=== PATIENT | male | born 1970 | race Caucasian/White ===

== ENCOUNTER → 2017-10-04 | Outpatient (REF) ==
--- NOTE | 2017-10-05 06:49 | REP ---
LUMBOSACRAL SPINE: CLINICAL: Pain and disability. TECHNIQUE: AP, lateral, coned down views of the lumbosacral spine. FINDINGS: Alignment and lordosis maintained and there is no evidence for acute fracture/compression injury or subluxation. Moderate degenerative disc osteophyte complex at the L3-4 level is appreciated including end plate sclerosis, disc space narrowing and marginal osteophyte. Remainder of examination appears normal for age. IMPRESSION: Focal moderate degenerative disc osteophyte complex at the L3-4 level. Signed by Wade Basilio MD 10/06/2017 08:54 A
== END ==
LOC: M SMT 13:39
PROVIDERS: ATTEND Internal Medicine
DX: Z02.9 Encounter for administrative examinations, unspecified (principal)

== ENCOUNTER → 2020-12-03 | Outpatient (REF) | payer OTHER ==
[~2020-12-03] MED LIST: ADME100I SC; ASPI81TA21 PO; ASPI81TA86 PO; ATOR80TA59 PO; CLOP75TA2 PO; EZET10TA21 PO; LANTINJ4 SC; LISI10TA22 PO; METF10004 PO; METO200T28 PO; NESI25TA PO; SPIR-10 PO; TORS20TA2 PO
[2020-12-03 13:14] LABS: BASO # 0.1 10^3/uL (0.0-0.2); BASO % 0.8 % (0.0-1.0); EOS # 0.1 10^3/uL (0.0-0.5); EOS % 0.9 % (0.0-3.0); HEMATOCRIT 48.5 % (42.0-52.0); HEMOGLOBIN 15.6 g/dl (13.5-17.5); LYMPH # 1.5 10^3/uL (1.5-5.0); MEAN CORPUSCULAR HEMOGLOBIN 27.6 pg (27.0-33.0); MEAN CORPUSCULAR HGB CONC 32.2 g/dl (32.0-36.5); MEAN CORPUSCULAR VOLUME 85.7 fl (80.0-96.0); MONO # 0.9 10^3/uL (0.0-0.8); MONO % 8.6 % (0.0-5.0); NEUTROPHILS # 7.5 10^3/uL (1.5-8.5); NEUTROPHILS % 74.3 % (36.0-66.0); PLATELET COUNT, AUTOMATED 271 10^3/uL (150-450); RED BLOOD COUNT 5.66 10^6/uL (4.30-6.10); WHITE BLOOD COUNT 10.1 10^3/uL (4.0-10.0)
[2020-12-03 13:25] LABS: FOLATE 10.2 NG/ML
== END ==
LOC: M LAB REF 12:46
PROVIDERS: ATTEND Physician Assistant
DX: E11.40 Type 2 diabetes mellitus with diabetic neuropathy, unspecified (principal)

== ENCOUNTER → 2021-03-23 | Outpatient (CLI) | payer OTHER ==
--- NOTE | 2021-03-23 12:56 | REP ---
INDICATION: PAIN RT LEG, PAIN LT LEG COMPARISON: None. TECHNIQUE: Real time parsons scale and color Doppler evaluation of the bilateral lower extremity arterial vasculature using linear high frequency transducer. FINDINGS: Parsons scale and color images demonstrate mild to moderate amounts of atheromatous plaquing without focal stenosis or occlusion identified. Doppler interrogation demonstrates normal triphasic arterial wave forms and velocities bilaterally. Peak systolic velocities (cm/sec) Common femoral artery: Right 91; Left 88 Profunda femoris: Right 93; Left 60 SFA (proximal): Right 91; Left 65 SFA (mid): Right 108; Left 96 SFA (distal): Right 96; Left 71 Popliteal artery: Right 97; Left 59 SHELBI (prox.): Right 53; Left 110 Tibioperoneal trunk: Right 79; Left 40 BOX OFFICE MANAGER (prox.): Right 61; Left 60 BOX OFFICE MANAGER (distal): Right 88; Left 70 SHELBI (distal): Right 69; Left 62 IMPRESSION: Atheromatous changes without obvious focal occlusion or stenosis. <Electronically signed by Wade Basilio > 03/23/21 [id number]
== END ==
LOC: M RAD 10:41
PROVIDERS: ATTEND Physician Assistant
DX: M79.604 Pain in right leg (principal); M79.605 Pain in left leg

== ENCOUNTER → 2021-04-27 | Outpatient (CLI) | payer OTHER ==
--- NOTE | 2021-04-30 02:28 | ECWPNPC ---
PATIENT NAME: SAMRA REEVES : 1970 GENDER: MALE VISIT DATE: 04/27/2021 DISCHARGE DATE: 04/27/21912 VISIT LOCKED DATE TIME: PHYSICIAN: BABS CHANEL RESOURCE: BABS CHANEL REASON FOR APPOINTMENT 1. INJECTIONS FOR CERVICAL SPONDYLOSIS W/RADICULOPATHY HISTORY OF PRESENT ILLNESS DEPRESSION SCREENING: PHQ-2 (2015 EDITION) LITTLE INTEREST OR PLEASURE IN DOING THINGS?NOT AT ALL FEELING DOWN, DEPRESSED, OR HOPELESS?NOT AT ALL TOTAL SCORE0 GENERAL: HPI 50-YEAR-OLD MALE IN FOR INITIAL PAIN CONSULT REGARDING CERVICAL NECK PAIN. PATIENT WAS REFERRED FOR INJECTIONS FOR CERVICAL SPONDYLOSIS. PATIENT DOES ADMIT TO SOME RADICULAR SYMPTOMS DOWN HIS RIGHT ARM. HE RATES HIS PAIN CURRENTLY AT A 6 OUT OF 10 AND DESCRIBES IT BURNING, CONTINUOUS, AND SHOOTING. HE IS CURRENTLY TAKING LYRICA AND HE ADMITS THAT AT ITS CURRENT DOSAGE IT IS NOT BENEFICIAL.. - - -. FALL RISK SCREENING: SCREENING : NO FALLS REPORTED IN THE LAST YEAR . PAIN SCREENING: PATIENT HAS A COMPLAINT OF ACUTE OR CHRONIC PAIN :YES LOCATION OF PAIN:NECK, RIGHT SHOULDER INTENSITY OF PAIN (SCALE OF 1 TO 10):6 WHAT DOES YOUR PAIN FEEL LIKE:BURNING, CONTINOUS, SHOOTING DURATION:CONTINOUS, CONSTANT, ALL DAY PAIN IS INCREASED BY:ACTIVITIES PAIN IS DECREASED BY:OTHERS HEAT FOR FEW MIN, NOTHING REALLY NURSING NOTE: - - -. PAIN CENTER INTAKE QUESTIONS: DO YOU HAVE A HISTORY OF MRSA? :NO DO YOU TAKE A BLOOD THINNERS? :YES PLAVIX 75 MG ,ELIQUIS 5 MG DO YOU HAVE ANY BLEEDING DISORDERS? :NO ANY NEW NUMBNESS OR WEAKNESS IN YOUR LEGS OR ARMS? :YES NUMBNESS IN THE RIGHT HAND DOWN INTO THE FINGERS ANY PACEMAKER,DEFIBRILLATOR, OR DORSAL COLUMN STIMULATOR? :YES STENTS DO YOU HAVE ANY RASHES OR OPEN SORES? :NO ARE YOU ALLERGIC TO IV DYE? :NO ARE YOU DIABETIC? :YES TYPE 2 ANY NEW PROBLEMS WITH YOUR MEDICATIONS? :NO HAVE YOU RECEIVED A VACCINE IN THE PAST 30 DAYS? :NO DO YOU PLAN TO RECEIVE A VACCINE IN THE NEXT 21 DAYS? :NO DO YOU NEED ANY PRESCRIPTION? :NO DO YOU TAKE ANY IMMUNOSUPPRESSIVE MEDICATIONS? :NO IS THERE A CHANCE YOU COULD BE ? :NO ARE YOU BREAST FEEDING? :NO CURRENT MEDICATIONS TAKING ADMELOG SOLOSTAR 100 UNIT/ML SOLUTION PEN-INJECTOR DIRECTED SUBCUTANEOUS TAKING ALCOHOL PREP PAD TAKING ALOGLIPTIN BENZOATE 25 MG TABLET 1 TABLET ORALLY ONCE A DAY TAKING AMLODIPINE BESYLATE 10 MG TABLET 1 TABLET ORALLY ONCE A DAY TAKING ATORVASTATIN CALCIUM 80 MG TABLET 1 TABLET ORALLY ONCE A DAY TAKING BASAGLAR KWIKPEN 100 UNIT/ML SOLUTION PEN-INJECTOR 37 UNITS DAILY SUBCUTANEOUS TAKING BD SWAB SINGLE USE REGULAR TAKING CLOPIDOGREL BISULFATE 75 MG TABLET 1 TABLET ORALLY ONCE A DAY TAKING DIGOXIN 250 MCG TABLET 1 TABLET ORALLY ONCE A DAY TAKING GLUCOMETER (VERIO IQ) GLUCOMETER TAKING GLUCOSE METER TEST - STRIP DIRECTED IN VITRO TAKING INSULIN SYRINGE 1 CC 1 TAB ORAL TAKING LANCETS 30G - MISCELLANEOUS DIRECTED TAKING LOSARTAN POTASSIUM 50 MG TABLET 1 TABLET ORALLY ONCE A DAY, NOTES: NOT SURE TAKING MAGNESIUM 200 MG TABLET 2 TABLETS WITH A MEAL ORALLY ONCE A DAY TAKING METOPROLOL TARTRATE 50 MG TABLET 1 TABLET WITH FOOD ORALLY TWICE A DAY TAKING NITROGLYCERIN 0.4 MG TABLET SUBLINGUAL DIRECTED SUBLINGUAL TAKING NOVOLOG FLEXPEN 100 UNIT/ML SOLUTION PEN-INJECTOR DIRECTED SUBCUTANEOUS MAX 40 UNITS PER DAY TAKING PANTOPRAZOLE SODIUM 20 MG TABLET DELAYED RELEASE 1 TABLET ORALLY ONCE A DAY TAKING PEN NEEDLES 03/14" TAKING ROSUVASTATIN CALCIUM 20 MG TABLET 1 TABLET ORALLY ONCE A DAY TAKING SPIRONOLACTONE 25 MG TABLET 1 TABLET ORALLY TAKING STEGLATRO 15 MG TABLET 1 TABLET ORALLY ONCE A DAY TAKING ANTI-EMBOLISM STOCKINGS MEDIUM - MISCELLANEOUS DIRECTED TAKING TOPAMAX 50 MG TABLET 1 TABLET ORALLY ONCE A DAY TAKING TORSEMIDE 100 MG TABLET 1/2 TABLET ORALLY ONCE A DAY TAKING TOUJEO SOLOSTAR 300 UNIT/ML SOLUTION PEN-INJECTOR DIRECTED SUBCUTANEOUS TAKING TRULICITY 0.75 MG/0.5ML SOLUTION PEN-INJECTOR DIRECTED SUBCUTANEOUS 75MG SC WEEKLY, NOTES: WEEKLY TAKING NITROGLYCERIN ER 2.5 MG CAPSULE EXTENDED RELEASE 1 CAPSULE ORALLY THREE TIMES A DAY, NOTES: NOT SURE OF DOSE TAKING ELIQUIS 5 MG TABLET DIRECTED ORALLY , NOTES: NOT SURE OF DOSE NOT-TAKING METFORMIN HCL 1000 MG TABLET 1 TABLET WITH A MEAL ORALLY BID MEDICATION LIST REVIEWED AND RECONCILED WITH THE PATIENT PAST MEDICAL HISTORY HYPERTENSION TYPE 2 DIABETES MELLITUS HEART DISEASE VITREOUS OPACITIES MYOCARDIAL INFARCTION EDEMA HYPERLIPIDEMIA HEART MURMUR STROKE BACK PAIN HEADACHE RIGHT SHOULDER PAIN ALLERGIES GABAPENTIN: BECOMES VIOLENT - SIDE EFFECTS GLUCOPHAGE: RASH - SIDE EFFECTS N.K.F.A.: NOT SURE N.K.E.A.: NOT SURE SURGICAL HISTORY CORONARY ARTERY BYPASS GRAFT (06/2016) 4 CARDIAC STENTS (12/2016) HEART SURG 02/2021 FAMILY HISTORY FATHER: 65 YRS MOTHER: 65 YRS SIBLINGS: ALIVE SON(S): ALIVE DAUGHTER(S): ALIVE 1 SISTER(S) . 1 SON(S) , 1 DAUGHTER(S) - HEALTHY. 2 HALF BROTHERS. SOCIAL HISTORY GENERAL: TOBACCO USE ARE YOU A:NONSMOKER NEVER SMOKER LATEX QUESTIONNAIRE LATEX ALLERGY : HAVE YOU EVER DEVELOPED ANY TYPE OF REACTION AFTER HANDLING LATEX PRODUCTS SUCH RUBBER GLOVES, CONDOMS, DIAPHRAGMS, BALLOONS, SOCKS, OR UNDERWEAR?NO LATEX ALLERGY : HAVE YOU EVER DEVELOPED ANY TYPE OF REACTION DURING OR AFTER DENTAL APPOINTMENT, VAGINAL/RECTAL EXAMINATION, SURGICAL PROCEDURE, OR ANY OTHER EXPOSURE?NO LATEX RISK : HAVE YOU EVER HAD ANY DIFFICULTY BREATHING OR HIVES AFTER EATING OR HANDLING ANY FRUITS, OR VEGETABLES; SUCH KIWI, BANANAS, STONE FRUITS, OR CHESTNUTSNO LATEX RISK : DO YOU HAVE A PREVIOUS PERSONAL HISTORY OF MORE THAN NINE SURGERIES, SPINA BIFIDA, OR REPEATED CATHERIZATIONS? NO LATEX RISK : ARE YOU FREQUENTLY EXPOSED TO LATEX PRODUCTS IN YOUR OCCUPATION?NO DATE ASKED : 04/27/2021 ALCOHOL USE: YES, VERY LITTLE. RECREATIONAL DRUG USE DRUG USE?NO LANGUAGE LANGUAGES SPOKEN:[place] LEARNING BARRIERS / SPECIAL NEEDS BARRIERS TO LEARNING?NO HEARING IMPAIRED?YES : ONLY WHEN HEADACHE VISION IMPAIRED?YES :CORRECTIVE LENSES COGNITIVELY IMPAIRED?NO READINESS TO LEARN?YES LEARNING PREFERENCES?NO LEARNING CAPABILITIES PRESENT?YES EMOTIONAL BARRIERS?YES COMMENTS NOT SURE SPECIAL DEVICES?NO WATER SAFETY TEACHER NEEDED?NO HOSPITALIZATION/MAJOR DIAGNOSTIC PROCEDURE NO HOSPITALIZATION HISTORY. REVIEW OF SYSTEMS CONSTITUTIONAL: ANY RECENT FEVER NO . CHILLS NO . WEIGHT CHANGE OF UNKNOWN REASONS NO . GASTROENTEROLOGY: NEW UNEXPLAINABLE CHANGES IN BOWEL CONTROL NO . CONSTIPATION NO . GENITOURINARY: ANY NEW CHANGE IN BLADDER CONTROL? NO . NEUROLOGY: NEW ONSET DIZZINESS OR NEUROLOGICAL CHANGES NOT MENTIONED NO . NEW NUMBNESS OR PAIN PATTERNS NOT MENTIONED AND PERTINENT TO TODAY'S VISIT NO . CARDIOLOGY: NEW CHEST PRESSURE NO . PATIENT DENIES NO . RESPIRATORY: UNEXPLAINABLE COUGH NO . NEW SHORTNESS OF BREATH NO . VITAL SIGNS WT 253 LBS, HT 5'8, BMI 49.41 INDEX, BP 160/77 MM HG, HR 64 /MIN, RR 18 /MIN, TEMP 97.5 F, OXYGEN SAT % 98%, SAFE IN ENV? (Y/N) YEST.CLAYTON GARCIA. EXAMINATION GENERAL EXAMINATION: GENERALNO ACUTE DISTRESS, WELL NOURISHED AND HYDRATED. PSYCHAPPROPRIATE MOOD AND AFFECT . NECK:DENIES POINT TENDERNESS ALONG THE CERVICAL SPINE, SURROUNDING SKIN SHOWS NO ERYTHEMA, ECCHYMOSIS, INCREASED WARMTH, AND RISK INTERRUPTIONS NOTED. PATIENT DOES ENDORSE TENDERNESS ALONG THE RIGHT SHOULDER BLADE. LUNGS:CLEAR TO AUSCULTATION BILATERALLY, NO WHEEZES, RHONCHI, RALES. HEART:NO MURMURS, REGULAR RATE AND RHYTHM. ASSESSMENTS CERVICAL DISC DISORDER WITH MYELOPATHY, UNSPECIFIED CERVICAL REGION - M50.00 (PRIMARY) TREATMENT CERVICAL DISC DISORDER WITH MYELOPATHY, UNSPECIFIED CERVICAL REGION START LYRICA CAPSULE, 75 MG, 1 CAPSULE, ORALLY, TWICE A DAY, 30 DAYS, 60 CAPSULE NOTES: GIVEN PRESENTING SYMPTOMS AND RESULTS OF PHYSICAL EXAMINATION RECOMMEND INCREASING THE LYRICA TO 75 MG TWICE DAILY. DISCUSSED POTENTIAL INJECTIONS WITH PATIENT AND AT THIS TIME PATIENT DECLINES THEM. PATIENT HAS EXPRESSED UNDERSTANDING OF AND WAS IN AGREEMENT WITH TREATMENT PLAN. GIVEN TIME TO ASK QUESTIONS AND EXPRESS CONCERNS. ISTOP REGISTRY REVIEWED AND DEMONSTRATES COMPLLIANCE. (REF # [id number] ). PROCEDURE CODES FA211 ESTABILISHED PATIENT [facility] CHARGE DISPOSITION & COMMUNICATION FOLLOW UP 4 WEEKS (REASON: MED INCREASE ) ELECTRONICALLY SIGNED BY JUDIT HENRY ON 04/29/2021 AT 08:24 AM EDT DISCLAIMER : THIS IS A VISIT SUMMARY EXTRACTED FROM THE [employer] CHART. IT IS NOT A COPY OF THE [employer] PROGRESS NOTE. BRENDAN
== END ==
LOC: M PAIN 08:30
PROVIDERS: ATTEND Family Medicine
DX: M50.00 Cervical disc disorder with myelopathy, unspecified cervical region (principal); I10 Essential (primary) hypertension; E11.9 Type 2 diabetes mellitus without complications; I25.2 Old myocardial infarction; E78.5 Hyperlipidemia, unspecified; R51.9 Headache, unspecified; M25.511 Pain in right shoulder; Z86.73 Personal history of transient ischemic attack (TIA), and cerebral infarction without residual deficits; Z95.5 Presence of coronary angioplasty implant and graft; Z79.4 Long term (current) use of insulin; Z79.01 Long term (current) use of anticoagulants; Z88.8 Allergy status to other drugs, medicaments and biological substances

== ENCOUNTER → 2021-05-25 | Outpatient (CLI) | payer OTHER ==
--- NOTE | 2021-05-27 02:15 | ECWPNPC ---
PATIENT NAME: SAMRA REEVES : 1970 GENDER: MALE VISIT DATE: 05/25/2021 DISCHARGE DATE: 05/25/21 1137 VISIT LOCKED DATE TIME: PHYSICIAN: BABS CHANEL RESOURCE: BABS CHANEL REASON FOR APPOINTMENT 1. 4 WEEKS HISTORY OF PRESENT ILLNESS GENERAL: HPI 50-YEAR-OLD MALE IN FOR CHRONIC PAIN FOLLOW-UP. AT LAST CLINIC VISIT PATIENT'S LYRICA WAS INCREASED AND HE ADMITS TODAY THAT THIS WAS NOT BENEFICIAL. HE RATES HIS PAIN CURRENTLY AT A 6 OUT OF 10 AND DESCRIBES IT ACHING, BURNING, AND DULL.. -. FALL RISK SCREENING: SCREENING : NO FALLS REPORTED IN THE LAST YEAR. PAIN SCREENING: PATIENT HAS A COMPLAINT OF ACUTE OR CHRONIC PAIN :YES LOCATION OF PAIN:NECK INTENSITY OF PAIN (SCALE OF 1 TO 10):6 WHAT DOES YOUR PAIN FEEL LIKE:ACHING, BURNING, OTHER DULL DURATION:CONTINOUS, CONSTANT, AWAKENS FROM SLEEP PAIN IS INCREASED BY:ACTIVITIES, PROLONGED STANDING PAIN IS DECREASED BY:OTHERS NOTHING SEEMS TO HELP THE PAIN. NURSING NOTE: -. PAIN CENTER INTAKE QUESTIONS: DO YOU HAVE A HISTORY OF MRSA? :NO DO YOU TAKE A BLOOD THINNERS? :YES PLAVIX 75 MG ,ELIQUIS 5 MG DO YOU HAVE ANY BLEEDING DISORDERS? :NO ANY NEW NUMBNESS OR WEAKNESS IN YOUR LEGS OR ARMS? :YES NUMBNESS IN THE RIGHT HAND DOWN INTO THE FINGERS ANY PACEMAKER,DEFIBRILLATOR, OR DORSAL COLUMN STIMULATOR? :YES STENTS DO YOU HAVE ANY RASHES OR OPEN SORES? :NO ARE YOU ALLERGIC TO IV DYE? :NO ARE YOU DIABETIC? :YES TYPE 2 ANY NEW PROBLEMS WITH YOUR MEDICATIONS? :NO HAVE YOU RECEIVED A VACCINE IN THE PAST 30 DAYS? :NO DO YOU PLAN TO RECEIVE A VACCINE IN THE NEXT 21 DAYS? :NO DO YOU NEED ANY PRESCRIPTION? :NO DO YOU TAKE ANY IMMUNOSUPPRESSIVE MEDICATIONS? :NO IS THERE A CHANCE YOU COULD BE ? :NO ARE YOU BREAST FEEDING? :NO CURRENT MEDICATIONS TAKING ADMELOG SOLOSTAR 100 UNIT/ML SOLUTION PEN-INJECTOR DIRECTED SUBCUTANEOUS TAKING ALCOHOL PREP PAD TAKING ALOGLIPTIN BENZOATE 25 MG TABLET 1 TABLET ORALLY ONCE A DAY TAKING AMLODIPINE BESYLATE 10 MG TABLET 1 TABLET ORALLY ONCE A DAY TAKING ATORVASTATIN CALCIUM 80 MG TABLET 1 TABLET ORALLY ONCE A DAY TAKING BASAGLAR KWIKPEN 100 UNIT/ML SOLUTION PEN-INJECTOR 37 UNITS DAILY SUBCUTANEOUS TAKING BD SWAB SINGLE USE REGULAR TAKING CLOPIDOGREL BISULFATE 75 MG TABLET 1 TABLET ORALLY ONCE A DAY TAKING DIGOXIN 250 MCG TABLET 1 TABLET ORALLY ONCE A DAY TAKING GLUCOMETER (VERIO IQ) GLUCOMETER TAKING GLUCOSE METER TEST - STRIP DIRECTED IN VITRO TAKING INSULIN SYRINGE 1 CC 1 TAB ORAL TAKING LANCETS 30G - MISCELLANEOUS DIRECTED TAKING LOSARTAN POTASSIUM 50 MG TABLET 1 TABLET ORALLY ONCE A DAY, NOTES: NOT SURE TAKING MAGNESIUM 200 MG TABLET 2 TABLETS WITH A MEAL ORALLY ONCE A DAY TAKING METOPROLOL TARTRATE 50 MG TABLET 1 TABLET WITH FOOD ORALLY TWICE A DAY TAKING NITROGLYCERIN 0.4 MG TABLET SUBLINGUAL DIRECTED SUBLINGUAL TAKING NOVOLOG FLEXPEN 100 UNIT/ML SOLUTION PEN-INJECTOR DIRECTED SUBCUTANEOUS MAX 40 UNITS PER DAY TAKING PANTOPRAZOLE SODIUM 20 MG TABLET DELAYED RELEASE 1 TABLET ORALLY ONCE A DAY TAKING PEN NEEDLES 03/14" TAKING ROSUVASTATIN CALCIUM 20 MG TABLET 1 TABLET ORALLY ONCE A DAY TAKING SPIRONOLACTONE 25 MG TABLET 1 TABLET ORALLY TAKING STEGLATRO 15 MG TABLET 1 TABLET ORALLY ONCE A DAY TAKING ANTI-EMBOLISM STOCKINGS MEDIUM - MISCELLANEOUS DIRECTED TAKING TOPAMAX 50 MG TABLET 1 TABLET ORALLY ONCE A DAY TAKING TORSEMIDE 100 MG TABLET 1/2 TABLET ORALLY ONCE A DAY TAKING TOUJEO SOLOSTAR 300 UNIT/ML SOLUTION PEN-INJECTOR DIRECTED SUBCUTANEOUS TAKING TRULICITY 0.75 MG/0.5ML SOLUTION PEN-INJECTOR DIRECTED SUBCUTANEOUS 75MG SC WEEKLY, NOTES: WEEKLY TAKING NITROGLYCERIN ER 2.5 MG CAPSULE EXTENDED RELEASE 1 CAPSULE ORALLY THREE TIMES A DAY, NOTES: NOT SURE OF DOSE TAKING ELIQUIS 5 MG TABLET DIRECTED ORALLY , NOTES: NOT SURE OF DOSE TAKING LYRICA 75 MG CAPSULE 1 CAPSULE ORALLY TWICE A DAY NOT-TAKING METFORMIN HCL 1000 MG TABLET 1 TABLET WITH A MEAL ORALLY BID MEDICATION LIST REVIEWED AND RECONCILED WITH THE PATIENT PAST MEDICAL HISTORY HYPERTENSION TYPE 2 DIABETES MELLITUS HEART DISEASE VITREOUS OPACITIES MYOCARDIAL INFARCTION EDEMA HYPERLIPIDEMIA HEART MURMUR STROKE BACK PAIN HEADACHE RIGHT SHOULDER PAIN ALLERGIES GABAPENTIN: BECOMES VIOLENT - SIDE EFFECTS GLUCOPHAGE: RASH - SIDE EFFECTS N.K.F.A.: NOT SURE N.K.E.A.: NOT SURE SOCIAL HISTORY GENERAL: TOBACCO USE ARE YOU A:NONSMOKER NEVER SMOKER LATEX QUESTIONNAIRE LATEX ALLERGY : HAVE YOU EVER DEVELOPED ANY TYPE OF REACTION AFTER HANDLING LATEX PRODUCTS SUCH RUBBER GLOVES, CONDOMS, DIAPHRAGMS, BALLOONS, SOCKS, OR UNDERWEAR?NO LATEX ALLERGY : HAVE YOU EVER DEVELOPED ANY TYPE OF REACTION DURING OR AFTER DENTAL APPOINTMENT, VAGINAL/RECTAL EXAMINATION, SURGICAL PROCEDURE, OR ANY OTHER EXPOSURE?NO LATEX RISK : HAVE YOU EVER HAD ANY DIFFICULTY BREATHING OR HIVES AFTER EATING OR HANDLING ANY FRUITS, OR VEGETABLES; SUCH KIWI, BANANAS, STONE FRUITS, OR CHESTNUTSNO LATEX RISK : DO YOU HAVE A PREVIOUS PERSONAL HISTORY OF MORE THAN NINE SURGERIES, SPINA BIFIDA, OR REPEATED CATHERIZATIONS? NO LATEX RISK : ARE YOU FREQUENTLY EXPOSED TO LATEX PRODUCTS IN YOUR OCCUPATION?NO DATE ASKED : 05/25/2021 ALCOHOL USE: YES, VERY LITTLE. RECREATIONAL DRUG USE DRUG USE?NO LANGUAGE LANGUAGES SPOKEN:EMIRATI LEARNING BARRIERS / SPECIAL NEEDS CHANGE FROM LAST VISIT?NO BARRIERS TO LEARNING?NO HEARING IMPAIRED?YES : ONLY WHEN HEADACHE VISION IMPAIRED?YES :CORRECTIVE LENSES COGNITIVELY IMPAIRED?NO READINESS TO LEARN?YES LEARNING PREFERENCES?NO LEARNING CAPABILITIES PRESENT?YES EMOTIONAL BARRIERS?YES COMMENTS NOT SURE SPECIAL DEVICES?NO SUSTAINABLE LANDSCAPE ARCHITECT NEEDED?NO REVIEW OF SYSTEMS CONSTITUTIONAL: ANY RECENT FEVER NO . CHILLS NO . WEIGHT CHANGE OF UNKNOWN REASONS NO . GASTROENTEROLOGY: NEW UNEXPLAINABLE CHANGES IN BOWEL CONTROL NO . CONSTIPATION NO . GENITOURINARY: ANY NEW CHANGE IN BLADDER CONTROL? NO . NEUROLOGY: NEW ONSET DIZZINESS OR NEUROLOGICAL CHANGES NOT MENTIONED NO . NEW NUMBNESS OR PAIN PATTERNS NOT MENTIONED AND PERTINENT TO TODAY'S VISIT NO . CARDIOLOGY: NEW CHEST PRESSURE NO . PATIENT DENIES NO . RESPIRATORY: UNEXPLAINABLE COUGH NO . NEW SHORTNESS OF BREATH NO . VITAL SIGNS WT 258.2 LBS, HT 5'8, BMI 50.42 INDEX, BP 140/71 MM HG, HR 58 /MIN, RR 18 /MIN, TEMP 97.2 F, OXYGEN SAT % 95%, SAFE IN ENV? (Y/N) YES, NA INITIALS CA 11:05, REVIEWED BY: ROEL SQUIRES MA. EXAMINATION GENERAL EXAMINATION: GENERALNO ACUTE DISTRESS, WELL NOURISHED AND HYDRATED. PSYCHAPPROPRIATE MOOD AND AFFECT . LUNGS:CLEAR TO AUSCULTATION BILATERALLY, NO WHEEZES, RHONCHI, RALES. HEART:NO MURMURS, REGULAR RATE AND RHYTHM. ASSESSMENTS CERVICAL DISC DISORDER WITH MYELOPATHY, UNSPECIFIED CERVICAL REGION - M50.00 (PRIMARY) TREATMENT CERVICAL DISC DISORDER WITH MYELOPATHY, UNSPECIFIED CERVICAL REGION INCREASE LYRICA CAPSULE, 150 MG, 1 CAPSULE, ORALLY, TWICE A DAY, 30 DAYS, 60 CAPSULE, REFILLS 1 NOTES: 50-YEAR-OLD MALE IN FOR CHRONIC PAIN FOLLOW-UP. GIVEN PRESENTING SYMPTOMS RECOMMEND INCREASING LYRICA TO 150 MG TWICE DAILY WITH FOLLOW-UP IN 2 MONTHS TO DETERMINE EFFICACY OF TREATMENT. PATIENT HAS EXPRESSED UNDERSTANDING OF AND WAS IN AGREEMENT WITH TREATMENT PLAN. GIVEN TIME ASKED QUESTIONS AND EXPRESS CONCERNS. ISTOP REGISTRY REVIEWED AND DEMONSTRATES COMPLLIANCE. (REF # ). PROCEDURE CODES FA211 ESTABILISHED PATIENT [facility] CHARGE DISPOSITION & COMMUNICATION FOLLOW UP 2 MONTHS (REASON: MED INCREASE) ELECTRONICALLY SIGNED BY JUDIT HENRY ON 05/26/2021 AT 08:52 AM EDT DISCLAIMER : THIS IS A VISIT SUMMARY EXTRACTED FROM THE [employer] CHART. IT IS NOT A COPY OF THE [employer] PROGRESS NOTE. MTDD
== END ==
LOC: M PAIN 11:15
PROVIDERS: ATTEND Family Medicine
DX: M50.00 Cervical disc disorder with myelopathy, unspecified cervical region (principal); I10 Essential (primary) hypertension; E11.9 Type 2 diabetes mellitus without complications; I25.2 Old myocardial infarction; E78.5 Hyperlipidemia, unspecified; M25.511 Pain in right shoulder; Z86.73 Personal history of transient ischemic attack (TIA), and cerebral infarction without residual deficits; Z79.4 Long term (current) use of insulin; Z79.01 Long term (current) use of anticoagulants; Z79.899 Other long term (current) drug therapy; Z79.02 Long term (current) use of antithrombotics/antiplatelets; Z88.8 Allergy status to other drugs, medicaments and biological substances

== ENCOUNTER → 2025-02-04 | Outpatient (REF) ==
[~2025-02-04] MED LIST changes: +METO200T15 PO; -METO200T28 PO
== END ==
LOC: M PLAIMG 14:53
PROVIDERS: ATTEND Internal Medicine
DX: M47.896 Other spondylosis, lumbar region (principal); M25.511 Pain in right shoulder